=== PATIENT | male | born 1960 | race Caucasian/White ===

== ENCOUNTER 2017-02-09 17:41 | Inpatient (IN) ==
[2017-02-09] MEDS ORDERED: METOCLOPRAMIDE 10 MG/2 ML VIAL IV STA (19:36)
[2017-02-09] MEDS ORDERED: SODIUM CHLORIDE 0.9% 1,000 ML IV STA (19:36)
[2017-02-09] MEDS ORDERED: ONDANSETRON 4 MG/2 ML VIAL IV STA (19:36)
[2017-02-09 20:09] LABS: Basophils % 0.2 % (0.0-0.8); Hematocrit 39.8 VOL% (42.0-52.0); Hemoglobin 13.6 GM/DL (14.0-18.0); Immature Granulocytes % 0.6 %; Immature Granulocytes Absolute 0.12 #; Lymphocytes # 1.4 10*3/uL (1.4-4.0); Lymphocytes % 6.6 % (21.2-54.2); Mean Corpuscular HGB Conc 34.2 GM/DL (32-36); Mean Corpuscular Hemoglobin 29 PG (27-34); Mean Corpuscular Volume 85.6 FL (87-102); Mean Platelet Volume 11.1 FL (9.6-12.0); Monocytes # 2.1 10*3/uL (0.11-0.8); Monocytes % 9.9 % (1.7-12.7); Neutrophils # 17.5 10*3/uL (1.4-7.4); Neutrophils % 82.7 % (38.7-73.9); Platelet Count 254 T/CUMM (130-400); Red Blood Count 4.65 MC/CUMM (3.8-5.5); Red Cell Distribution Width 13.2 % (9.3-17.3); White Blood Count 21.1 T/CUMM (4-12)
[2017-02-09 20:11] LABS: Apearance,Urine Slightly Hazy (Clear); Bilirubin,Urine Negative (Negative); Blood, Urine Negative (Negative); Glucose,Urine (UA) Negative (Negative); Ketones,Urine 5 mg/dL (Negative); Mucus,Urine Few /LPF (Occasional); Nitrite,Urine Negative (Negative); Protein,Urine Negative; RBC,Urine <1 /HPF (0-4); Squamous Epithelial Cell,Urine Occasional /HPF (0-10); Urine Color Yellow (Yellow); Urine Specific Gravity 1.029 (1.001-1.035); Urine Urobilinogen < 2.0 EU/DL (0.2-1.0); WBC,Urine 2 /HPF (0-6)
[2017-02-09] MEDS ORDERED: cefTRIAXone 1,000 MG in SODIUM CHLORIDE 0.9% 100 ML IV STA (20:17)
[2017-02-09] MEDS ORDERED: metroNIDAZOLE INJ 500 MG in PREMIX 1 EACH IV STA (20:17)
[2017-02-09] MEDS ORDERED: cefTRIAXone 1,000 MG VIAL ONE (20:30)
[2017-02-09] MEDS ORDERED: SODIUM CHLORIDE 0.9% 50 ML IV ONE (20:30)
[2017-02-09] MEDS ORDERED: METOCLOPRAMIDE 10 MG/2 ML VIAL ONE (20:32)
[2017-02-09] MEDS ORDERED: ONDANSETRON 4 MG/2 ML VIAL ONE (20:32)
[2017-02-09 20:36] LABS: Albumin 4.2 G/DL (3.4-5.0); Bilirubin,Total 0.5 MG/DL (0.2-1.0); Calcium 9.1 MG/DL (8.5-10.1); Osmolality,Calculated 272.2 MOS/KG (273-304); Potassium 3.6 MMOL/L (3.5-5.1); Total Protein 7.1 G/DL (6.4-8.3)
[2017-02-09 21:02] LABS: INR 1.1; PT Patient Result 11.1 SECS; Partial Thromboplastin Time 26.2 SECS (0-40)
[2017-02-09] MEDS ORDERED: metroNIDAZOLE 500 MG/100 ML PREMIX IV ONE (21:10)
[2017-02-09 21:41] LABS: Lymphocytes 4 % (20-55); Platelet Estimate Normal; Segmented Neutrophils 90 % (50-85); Total Cells Counted 100
[2017-02-09] MEDS ORDERED: GLUCAGON 1 MG VIAL IM PRN (23:55)
[2017-02-09] MEDS ORDERED: ACETAMINOPHEN 325 MG TABLET PO PRN (23:55)
[2017-02-09] MEDS ORDERED: ONDANSETRON 4 MG/2 ML VIAL IV PRN (23:55)
[2017-02-09] MEDS ORDERED: DEXTROSE 50% 25 GM/50 ML VIAL IV PRN (23:55)
[2017-02-09] MEDS ORDERED: HYDROmorphone 2 MG/1 ML VIAL IV PRN (23:55)
[2017-02-10] MEDS: PIPERACILLIN/TAZOBACTAM 3,375 MG in SODIUM CHLORIDE 0.9% 100 ML IV SCH ×3 (00:32→16:55)
[2017-02-10] MEDS: SODIUM CHLORIDE 0.9% 1,000 ML IV SCH ×3 (00:32→16:55)
[2017-02-10 06:16] LABS: Basophils % 0.2 % (0.0-0.8); Hematocrit 38.3 VOL% (42.0-52.0); Hemoglobin 13.1 GM/DL (14.0-18.0); Immature Granulocytes % 0.5 %; Immature Granulocytes Absolute 0.09 #; Lymphocytes # 2.2 10*3/uL (1.4-4.0); Lymphocytes % 12.1 % (21.2-54.2); Mean Corpuscular HGB Conc 34.2 GM/DL (32-36); Mean Corpuscular Hemoglobin 30 PG (27-34); Mean Corpuscular Volume 86.7 FL (87-102); Mean Platelet Volume 11.4 FL (9.6-12.0); Monocytes % 11.5 % (1.7-12.7); Neutrophils # 13.4 10*3/uL (1.4-7.4); Neutrophils % 75.7 % (38.7-73.9); Platelet Count 221 T/CUMM (130-400); Red Blood Count 4.42 MC/CUMM (3.8-5.5); Red Cell Distribution Width 13.3 % (9.3-17.3); White Blood Count 17.7 T/CUMM (4-12)
[2017-02-10] MEDS ORDERED: ceFAZolin 2,000 MG in PREMIX 1 EACH IV ONE (06:37)
[2017-02-10 06:45] LABS: Albumin 3.9 G/DL (3.4-5.0); Bilirubin,Total 0.9 MG/DL (0.2-1.0); Calcium 8.6 MG/DL (8.5-10.1); Magnesium 1.8 MG/DL (1.8-2.4); Potassium 3.4 MMOL/L (3.5-5.1); Total Protein 6.4 G/DL (6.4-8.3)
[2017-02-10] MEDS ORDERED: BUPIVACAINE 0.5% /EPI 10 ML VIAL ONE (07:00)
[2017-02-10] MEDS ORDERED: TISSUE ADHESIVE 1 EACH APPLICATOR TOP ONE (07:00)
[2017-02-10] MEDS ORDERED: ceFAZolin 1,000 MG VIAL ONE (07:31)
[2017-02-10] MEDS: INSULIN REGULAR 100 UNIT/ML SUBCUT SCH ×4 (08:48→21:35)
[2017-02-10] MEDS: PANTOPRAZOLE 40 MG VIAL IV SCH (08:49)
[2017-02-10] MEDS ORDERED: PROPOFOL 200 MG/20 ML VIAL IV ONE (09:20)
[2017-02-10] MEDS ORDERED: MIDAZOLAM 2 MG/2 ML VIAL ONE (09:21)
[2017-02-10] MEDS ORDERED: KETOROLAC 30 MG/1 ML VIAL ONE (09:21)
[2017-02-10] MEDS ORDERED: ONDANSETRON 4 MG/2 ML VIAL ONE (09:21)
[2017-02-10] MEDS ORDERED: fentaNYL 100 MCG/2 ML VIAL ONE (09:21)
[2017-02-10] MEDS ORDERED: SEVOFLURANE 1 UNIT/15 MINUTE INH ONE (09:21)
[2017-02-10] MEDS ORDERED: ROCURONIUM 100 MG/10 ML VIAL IV ONE (09:22)
[2017-02-10] MEDS ORDERED: GLYCOPYRROLATE 0.4 MG/2 ML VIAL ONE (09:22)
[2017-02-10] MEDS ORDERED: NEOSTIGMINE 10 MG/10 ML VIAL ONE (09:22)
[2017-02-10] MEDS ORDERED: LACTATED RINGERS 1,000 ML IV ONE (12:27)
[2017-02-10] MEDS: ENOXAPARIN 40 MG/0.4 ML SYRINGE SUBCUT SCH (17:15)
[2017-02-10] MEDS: POTASSIUM CITRATE 10 MEQ TABLET PO SCH (17:17)
[2017-02-10] MEDS ORDERED: Flaxseed Oil [Flaxseed Oil] 1,000 MG PO SCH (21:00)
[2017-02-10] MEDS: ASPIRIN EC 81 MG TABLET PO SCH (22:34)
[2017-02-10] MEDS: OMEGA 3 ACID ETHYL ESTERS 1 GM CAPSULE PO SCH (22:34)
[2017-02-10] MEDS: FENOFIBRATE 145 MG TABLET PO SCH (22:35)
[2017-02-10] MEDS: MAGNESIUM OXIDE 400 MG TABLET PO SCH (22:35)
[2017-02-10] MEDS: ALLOPURINOL 300 MG TABLET PO SCH (22:35)
[2017-02-10] MEDS: SIMVASTATIN 20 MG TABLET PO SCH (22:35)
[2017-02-11] MEDS: PIPERACILLIN/TAZOBACTAM 3,375 MG in SODIUM CHLORIDE 0.9% 100 ML IV SCH ×4 (00:16→23:50)
[2017-02-11] MEDS: SODIUM CHLORIDE 0.9% 1,000 ML IV SCH ×3 (00:18→17:20)
[2017-02-11] MEDS: LEVOTHYROXINE 125 MCG TABLET PO SCH (06:37)
[2017-02-11 06:48] LABS: Basophils % 0.2 % (0.0-0.8); Eosinophils % 0.2 % (0.00-10.9); Hematocrit 33.3 VOL% (42.0-52.0); Hemoglobin 11.1 GM/DL (14.0-18.0); Immature Granulocytes % 0.3 %; Immature Granulocytes Absolute 0.04 #; Lymphocytes # 1.9 10*3/uL (1.4-4.0); Lymphocytes % 14.9 % (21.2-54.2); Mean Corpuscular HGB Conc 33.3 GM/DL (32-36); Mean Corpuscular Hemoglobin 29 PG (27-34); Mean Corpuscular Volume 88.3 FL (87-102); Mean Platelet Volume 11.7 FL (9.6-12.0); Monocytes # 1.3 10*3/uL (0.11-0.8); Monocytes % 10.5 % (1.7-12.7); Neutrophils # 9.2 10*3/uL (1.4-7.4); Neutrophils % 73.9 % (38.7-73.9); Platelet Count 183 T/CUMM (130-400); Red Blood Count 3.77 MC/CUMM (3.8-5.5); Red Cell Distribution Width 13.2 % (9.3-17.3); White Blood Count 12.4 T/CUMM (4-12)
[2017-02-11 07:20] LABS: Calcium 7.9 MG/DL (8.5-10.1); Magnesium 1.9 MG/DL (1.8-2.4); Osmolality,Calculated 274.8 MOS/KG (273-304); Potassium 3.5 MMOL/L (3.5-5.1)
[2017-02-11] MEDS: INSULIN REGULAR 100 UNIT/ML SUBCUT SCH ×4 (07:28→20:40)
[2017-02-11] MEDS: PANTOPRAZOLE 40 MG VIAL IV SCH (08:46)
[2017-02-11] MEDS: MAGNESIUM OXIDE 400 MG TABLET PO SCH ×2 (08:46→20:41)
[2017-02-11] MEDS: IRBESARTAN 150 MG TABLET PO SCH (08:46)
[2017-02-11] MEDS: ASPIRIN EC 81 MG TABLET PO SCH ×2 (08:46→20:41)
[2017-02-11] MEDS: OMEGA 3 ACID ETHYL ESTERS 1 GM CAPSULE PO SCH ×2 (08:46→20:41)
[2017-02-11] MEDS: POTASSIUM CITRATE 10 MEQ TABLET PO SCH ×2 (08:47→17:20)
[2017-02-11] MEDS: CHOLECALCIFEROL 1,000 UNIT TABLET PO SCH (08:47)
[2017-02-11] MEDS ORDERED: SODIUM CHLORIDE 0.45% 1,000 ML IV SCH (12:00)
[2017-02-11] MEDS: METOPROLOL TARTRATE 25 MG TABLET PO SCH ×2 (12:33→20:24)
[2017-02-11] MEDS: ENOXAPARIN 40 MG/0.4 ML SYRINGE SUBCUT SCH (17:20)
[2017-02-11] MEDS: FENOFIBRATE 145 MG TABLET PO SCH (20:42)
[2017-02-11] MEDS: ALLOPURINOL 300 MG TABLET PO SCH (20:42)
[2017-02-11] MEDS: SIMVASTATIN 20 MG TABLET PO SCH (20:42)
[2017-02-11] MEDS ORDERED: METOPROLOL TARTRATE 25 MG TABLET PO SCH (21:00)
[2017-02-12] MEDS: SODIUM CHLORIDE 0.9% 1,000 ML IV SCH ×4 (04:02→19:20)
[2017-02-12] MEDS: LEVOTHYROXINE 125 MCG TABLET PO SCH (06:42)
[2017-02-12] MEDS: INSULIN REGULAR 100 UNIT/ML SUBCUT SCH ×4 (07:36→20:46)
[2017-02-12] MEDS: PIPERACILLIN/TAZOBACTAM 3,375 MG in SODIUM CHLORIDE 0.9% 100 ML IV SCH ×2 (08:10→16:44)
[2017-02-12] MEDS: OMEGA 3 ACID ETHYL ESTERS 1 GM CAPSULE PO SCH ×2 (10:19→21:44)
[2017-02-12] MEDS: ASPIRIN EC 81 MG TABLET PO SCH ×2 (10:19→21:45)
[2017-02-12] MEDS: IRBESARTAN 150 MG TABLET PO SCH (10:19)
[2017-02-12] MEDS: MAGNESIUM OXIDE 400 MG TABLET PO SCH ×2 (10:25→21:44)
[2017-02-12] MEDS: CHOLECALCIFEROL 1,000 UNIT TABLET PO SCH (10:26)
[2017-02-12] MEDS: POTASSIUM CITRATE 10 MEQ TABLET PO SCH ×2 (10:26→17:03)
[2017-02-12] MEDS: PANTOPRAZOLE 40 MG VIAL IV SCH (10:26)
[2017-02-12] MEDS: METOPROLOL TARTRATE 25 MG TABLET PO SCH ×2 (12:10→21:40)
[2017-02-12] MEDS: metFORMIN 500 MG TABLET PO SCH (17:36)
[2017-02-12] MEDS: ENOXAPARIN 40 MG/0.4 ML SYRINGE SUBCUT SCH (18:44)
[2017-02-12] MEDS ORDERED: NON-FORMULARY MEDICATION (Liraglutide [Victoza 2-Pak] 1.8 MG) SUBCUT SCH (21:00)
[2017-02-12] MEDS: FENOFIBRATE 145 MG TABLET PO SCH (21:44)
[2017-02-12] MEDS: SIMVASTATIN 20 MG TABLET PO SCH (21:44)
[2017-02-12] MEDS: ALLOPURINOL 300 MG TABLET PO SCH (21:45)
[2017-02-13] MEDS: PIPERACILLIN/TAZOBACTAM 3,375 MG in SODIUM CHLORIDE 0.9% 100 ML IV SCH ×2 (00:02→07:13)
[2017-02-13 05:06] LABS: Basophils % 0.5 % (0.0-0.8); Eosinophils # 0.2 10*3/uL (0.0-0.87); Eosinophils % 2.5 % (0.00-10.9); Hematocrit 34.5 VOL% (42.0-52.0); Hemoglobin 11.9 GM/DL (14.0-18.0); Immature Granulocytes % 0.2 %; Immature Granulocytes Absolute 0.02 #; Mean Corpuscular HGB Conc 34.5 GM/DL (32-36); Mean Corpuscular Hemoglobin 30 PG (27-34); Mean Corpuscular Volume 85.8 FL (87-102); Mean Platelet Volume 11.5 FL (9.6-12.0); Monocytes # 0.8 10*3/uL (0.11-0.8); Monocytes % 9.1 % (1.7-12.7); Neutrophils # 5.6 10*3/uL (1.4-7.4); Neutrophils % 64.7 % (38.7-73.9); Platelet Count 255 T/CUMM (130-400); Red Blood Count 4.02 MC/CUMM (3.8-5.5); Red Cell Distribution Width 12.9 % (9.3-17.3); White Blood Count 8.7 T/CUMM (4-12)
[2017-02-13 05:48] LABS: Calcium 8.5 MG/DL (8.5-10.1); Magnesium 1.7 MG/DL (1.8-2.4)
[2017-02-13 05:49] LABS: Osmolality,Calculated 278.4 MOS/KG (273-304); Potassium 3.8 MMOL/L (3.5-5.1)
[2017-02-13] MEDS: LEVOTHYROXINE 125 MCG TABLET PO SCH (06:19)
[2017-02-13] MEDS: INSULIN REGULAR 100 UNIT/ML SUBCUT SCH ×2 (07:43→11:11)
[2017-02-13] MEDS: IRBESARTAN 150 MG TABLET PO SCH (08:53)
[2017-02-13] MEDS: metFORMIN 500 MG TABLET PO SCH (08:53)
[2017-02-13] MEDS: OMEGA 3 ACID ETHYL ESTERS 1 GM CAPSULE PO SCH (08:53)
[2017-02-13] MEDS: ASPIRIN EC 81 MG TABLET PO SCH (08:53)
[2017-02-13] MEDS: MAGNESIUM OXIDE 400 MG TABLET PO SCH (08:53)
[2017-02-13] MEDS: PANTOPRAZOLE 40 MG VIAL IV SCH (08:53)
[2017-02-13] MEDS: CHOLECALCIFEROL 1,000 UNIT TABLET PO SCH (08:54)
[2017-02-13] MEDS: POTASSIUM CITRATE 10 MEQ TABLET PO SCH (08:54)
[2017-02-13] MEDS: METOPROLOL TARTRATE 25 MG TABLET PO SCH (08:58)
[2017-02-13] MEDS ORDERED: hydroCHLOROthiazide 25 MG TABLET PO SCH (09:00)
[2017-02-13 11:28] VITALS: BP 121/63
[2017-02-13] MEDS ORDERED: ASCORBIC ACID 500 MG TABLET PO SCH (21:00)
== END 2017-02-13 11:45 | disposition home or self-care (01) | DRG 339 ==
LOC: N.ED 17:41 → N.EDINP 23:06 → N.3E 23:29
PROVIDERS: ADMIT Surgery; ATTEND Surgery

== ENCOUNTER 2017-05-27 09:32 | Inpatient (IN) ==
[2017-05-27] MEDS ORDERED: DILTIAZEM 50 MG/10 ML VIAL IV STA ×2 (10:07→12:25)
[2017-05-27] MEDS ORDERED: DILTIAZEM 100 MG VIAL.ADD IV ONE ×2 (10:15→12:27)
[2017-05-27] MEDS ORDERED: METOPROLOL TARTRATE 5 MG/5 ML VIAL IV STA (10:25)
[2017-05-27] MEDS ORDERED: METOPROLOL TARTRATE 5 MG/5 ML VIAL IV ONE (10:27)
[2017-05-27 10:35] LABS: Basophils # 0.1 10*3/uL (0.0-0.2); Basophils % 0.5 % (0.0-0.8); Eosinophils # 0.3 10*3/uL (0.0-0.87); Eosinophils % 2.2 % (0.00-10.9); Hematocrit 43.4 VOL% (42.0-52.0); Hemoglobin 14.6 GM/DL (14.0-18.0); Immature Granulocytes % 0.2 %; Immature Granulocytes Absolute 0.03 #; Lymphocytes # 1.9 10*3/uL (1.4-4.0); Lymphocytes % 15.4 % (21.2-54.2); Mean Corpuscular HGB Conc 33.6 GM/DL (32-36); Mean Corpuscular Hemoglobin 29 PG (27-34); Mean Corpuscular Volume 87.1 FL (87-102); Mean Platelet Volume 11.6 FL (9.6-12.0); Monocytes # 1.5 10*3/uL (0.11-0.8); Monocytes % 11.5 % (1.7-12.7); Neutrophils # 8.8 10*3/uL (1.4-7.4); Neutrophils % 70.2 % (38.7-73.9); Platelet Count 244 T/CUMM (130-400); Red Blood Count 4.98 MC/CUMM (3.8-5.5); Red Cell Distribution Width 13.2 % (9.3-17.3); White Blood Count 12.6 T/CUMM (4-12)
[2017-05-27 10:54] LABS: PT Patient Result 10.2 SECS
[2017-05-27 11:01] LABS: Free T4 (Free Thyroxine) 1.61 NG/DL (0.76-1.46); Troponin I Only < 0.015 NG/ML (0.00-0.045)
[2017-05-27 11:03] LABS: Albumin 3.9 G/DL (3.4-5.0); Bilirubin,Total 0.4 MG/DL (0.2-1.0); Calcium 10.1 MG/DL (8.5-10.1); Osmolality,Calculated 284.7 MOS/KG (273-304); Potassium 4.5 MMOL/L (3.5-5.1); Thyroid Stimulating Hormone 1.85 uIU/ml (0.358-3.74); Total Protein 6.9 G/DL (6.4-8.3)
[2017-05-27] MEDS ORDERED: AZITHROMYCIN INJ 500 MG in SODIUM CHLORIDE 0.9% 250 ML IV STA (11:22)
[2017-05-27] MEDS ORDERED: ALBUTEROL/IPRATROPIUM 3 ML NEB RESP TX STA (11:22)
[2017-05-27] MEDS ORDERED: methylPREDNISolone SOD SUC 125 MG/2 ML VIAL IV STA (11:22)
[2017-05-27] MEDS ORDERED: AZITHROMYCIN 500 MG VIAL IV ONE (11:38)
[2017-05-27] MEDS ORDERED: methylPREDNISolone SOD SUC 125 MG/2 ML VIAL ONE (11:38)
[2017-05-27] MEDS: DILTIAZEM INJ 100 MG in SODIUM CHLORIDE 0.9% 100 ML IV SCH (12:28)
[2017-05-27] MEDS ORDERED: ACETAMINOPHEN 325 MG TABLET PO PRN (14:01)
[2017-05-27] MEDS ORDERED: DEXTROSE 50% 25 GM/50 ML VIAL IV PRN ×2 (14:01)
[2017-05-27] MEDS ORDERED: GLUCAGON 1 MG VIAL IM PRN ×2 (14:01)
[2017-05-27] MEDS: APIXABAN 5 MG TABLET PO SCH ×2 (14:37→21:07)
[2017-05-27] MEDS: DOXYCYCLINE HYCLATE 100 MG CAPSULE PO SCH (14:37)
[2017-05-27] MEDS: cefTRIAXone 1,000 MG in SYRINGE 1 EACH IV SCH (14:37)
[2017-05-27 14:38] LABS: Risk Ratio 5.36; VLDL CHOLESTEROL 41.2 MG/DL
[2017-05-27 14:53] LABS: Troponin I Only < 0.015 NG/ML (0.00-0.045)
[2017-05-27] MEDS ORDERED: SOTALOL 80 MG TABLET PO ONE (15:35)
[2017-05-27] MEDS: INSULIN REGULAR 100 UNIT/ML SUBCUT SCH (17:11)
[2017-05-27 18:41] LABS: Apearance,Urine CLEAR (Clear); Bilirubin,Urine Negative (Negative); Blood, Urine Negative (Negative); Glucose,Urine (UA) 50 mg/dL (Negative); Ketones,Urine 20 mg/dL (Negative); Mucus,Urine Occasional /LPF (Occasional); Nitrite,Urine Negative (Negative); Protein,Urine Negative; RBC,Urine 1 /HPF (0-4); Urine Color Yellow (Yellow); Urine Specific Gravity 1.027 (1.001-1.035); Urine Urobilinogen < 2.0 EU/DL (0.2-1.0); WBC,Urine <1 /HPF (0-6)
[2017-05-27] MEDS ORDERED: FLAXSEED OIL 1000 MG PO SCH (21:00)
[2017-05-27] MEDS ORDERED: NF- (Liraglutide [Victoza 2-Pak] 1.8 MG) SUBCUT SCH (21:00)
[2017-05-27] MEDS: ASPIRIN EC 81 MG TABLET PO SCH (21:02)
[2017-05-27] MEDS: ALLOPURINOL 300 MG TABLET PO SCH (21:02)
[2017-05-27] MEDS: ASCORBIC ACID 500 MG TABLET PO SCH (21:02)
[2017-05-27] MEDS: MAGNESIUM OXIDE 400 MG TABLET PO SCH (21:02)
[2017-05-27] MEDS: SOTALOL 80 MG TABLET PO SCH (21:02)
[2017-05-27] MEDS: SIMVASTATIN 20 MG TABLET PO SCH (21:02)
[2017-05-28] MEDS: INSULIN REGULAR 100 UNIT/ML SUBCUT SCH ×4 (00:49→18:05)
[2017-05-28] MEDS: DILTIAZEM INJ 100 MG in SODIUM CHLORIDE 0.9% 100 ML IV SCH ×2 (03:50→13:23)
[2017-05-28] MEDS ORDERED: SODIUM CHLORIDE 0.9% 500 ML IV ONE (03:56)
[2017-05-28 05:14] LABS: Basophils % 0.1 % (0.0-0.8); Hematocrit 36.7 VOL% (42.0-52.0); Hemoglobin 12.6 GM/DL (14.0-18.0); Immature Granulocytes % 0.4 %; Immature Granulocytes Absolute 0.05 #; Lymphocytes # 1.1 10*3/uL (1.4-4.0); Lymphocytes % 8.4 % (21.2-54.2); Mean Corpuscular HGB Conc 34.3 GM/DL (32-36); Mean Corpuscular Hemoglobin 30 PG (27-34); Mean Corpuscular Volume 86.4 FL (87-102); Mean Platelet Volume 12.1 FL (9.6-12.0); Monocytes # 0.7 10*3/uL (0.11-0.8); Monocytes % 5.6 % (1.7-12.7); Neutrophils # 11.1 10*3/uL (1.4-7.4); Neutrophils % 85.5 % (38.7-73.9); Platelet Count 237 T/CUMM (130-400); Red Blood Count 4.25 MC/CUMM (3.8-5.5); Red Cell Distribution Width 13.2 % (9.3-17.3); White Blood Count 12.9 T/CUMM (4-12)
[2017-05-28 06:04] LABS: Alanine Aminotransferase 19 U/L (16-61); Albumin 3.3 G/DL (3.4-5.0); Alkaline Phosphatase 49 U/L (45-117); Aspartate Amino Transferase 9 U/L (0-37); Blood Urea Nitrogen 32 MG/DL (7-18); Glucose 310 MG/DL (74-106); Osmolality,Calculated 291.8 MOS/KG (273-304); Sodium 137 MMOL/L (136-145); Total Protein 6.1 G/DL (6.4-8.3); Troponin I Only < 0.015 NG/ML (0.00-0.045)
[2017-05-28] MEDS: LEVOTHYROXINE 125 MCG TABLET PO SCH (06:20)
[2017-05-28] MEDS ORDERED: NF- (Cyanocobalamin (Vitamin B-12) [Vitamin B-12] 5,000 MCG) SL SCH (09:00)
[2017-05-28] MEDS: PANTOPRAZOLE 40 MG TABLET PO SCH (09:48)
[2017-05-28] MEDS: MAGNESIUM OXIDE 400 MG TABLET PO SCH ×2 (09:48→20:46)
[2017-05-28] MEDS: SOTALOL 80 MG TABLET PO SCH ×2 (09:49→20:46)
[2017-05-28] MEDS: ASCORBIC ACID 500 MG TABLET PO SCH ×2 (09:55→20:46)
[2017-05-28] MEDS: CHOLECALCIFEROL 5,000 UNIT TABLET PO SCH (09:55)
[2017-05-28] MEDS: APIXABAN 5 MG TABLET PO SCH ×2 (09:55→20:46)
[2017-05-28] MEDS: DOXYCYCLINE HYCLATE 100 MG CAPSULE PO SCH (09:55)
[2017-05-28] MEDS: ASPIRIN EC 81 MG TABLET PO SCH ×2 (09:56→20:46)
[2017-05-28] MEDS: GLIMEPIRIDE 4 MG TABLET PO SCH (09:56)
[2017-05-28] MEDS: cefTRIAXone 1,000 MG in SYRINGE 1 EACH IV SCH (14:30)
[2017-05-28] MEDS: SIMVASTATIN 20 MG TABLET PO SCH (20:46)
[2017-05-28] MEDS: ALLOPURINOL 300 MG TABLET PO SCH (20:46)
[2017-05-29] MEDS: INSULIN REGULAR 100 UNIT/ML SUBCUT SCH ×2 (00:12→05:00)
[2017-05-29] MEDS: LEVOTHYROXINE 125 MCG TABLET PO SCH ×2 (06:15→10:15)
[2017-05-29] MEDS ORDERED: MIDAZOLAM 10 MG/2 ML VIAL ONE (07:47)
[2017-05-29] MEDS ORDERED: fentaNYL 100 MCG/2 ML VIAL ONE (07:47)
[2017-05-29] MEDS ORDERED: MIDAZOLAM 2 MG/2 ML VIAL IV ONE (08:00)
[2017-05-29] MEDS ORDERED: fentaNYL 100 MCG/2 ML VIAL IV ONE (08:00)
[2017-05-29] MEDS ORDERED: SODIUM CHLORIDE 0.9% 1,000 ML IV SCH (08:30)
[2017-05-29] MEDS: PANTOPRAZOLE 40 MG TABLET PO SCH (09:41)
[2017-05-29] MEDS: APIXABAN 5 MG TABLET PO SCH (09:41)
[2017-05-29] MEDS: ASPIRIN EC 81 MG TABLET PO SCH (09:41)
[2017-05-29] MEDS: MAGNESIUM OXIDE 400 MG TABLET PO SCH (09:41)
[2017-05-29] MEDS: SOTALOL 80 MG TABLET PO SCH (09:41)
[2017-05-29] MEDS: CHOLECALCIFEROL 5,000 UNIT TABLET PO SCH (09:42)
[2017-05-29] MEDS: DOXYCYCLINE HYCLATE 100 MG CAPSULE PO SCH (09:42)
[2017-05-29] MEDS: ASCORBIC ACID 500 MG TABLET PO SCH (09:42)
[2017-05-29] MEDS: GLIMEPIRIDE 4 MG TABLET PO SCH (09:46)
[2017-05-29 11:56] VITALS: BP 109/64
== END 2017-05-29 12:00 | disposition home or self-care (01) | DRG 308 ==
LOC: N.ED 09:32 → SUATTDRO 12:25 → N.EDINP 12:25 → N.TELES 13:31
PROVIDERS: ADMIT Family Medicine; ATTEND Internal Medicine

== ENCOUNTER 2018-02-20 05:54 | Observation (INO) ==
[2018-02-20] MEDS ORDERED: LIDOCAINE 1% 20 ML VIAL ONE ×2 (06:53→08:02)
[2018-02-20] MEDS ORDERED: HEPARIN/NACL 0.9% 2 UNITS/ML 500 ML IV ONE (06:53)
[2018-02-20 07:00] LABS: Basophils % 0.4 % (0.0-0.8); Eosinophils # 0.1 10*3/uL (0.0-0.87); Hematocrit 44.2 VOL% (42.0-52.0); Hemoglobin 14.7 GM/DL (14.0-18.0); Immature Granulocytes % 0.3 %; Immature Granulocytes Absolute 0.03 #; Lymphocytes # 2.7 10*3/uL (1.4-4.0); Mean Corpuscular HGB Conc 33.3 GM/DL (32-36); Mean Corpuscular Hemoglobin 30 PG (27-34); Mean Corpuscular Volume 88.8 FL (87-102); Monocytes # 0.7 10*3/uL (0.11-0.8); Monocytes % 7.5 % (1.7-12.7); Neutrophils # 6.3 10*3/uL (1.4-7.4); Neutrophils % 63.8 % (38.7-73.9); Platelet Count 230 T/CUMM (130-400); Red Blood Count 4.98 MC/CUMM (3.8-5.5); Red Cell Distribution Width 12.8 % (9.3-17.3); White Blood Count 9.9 T/CUMM (4-12)
[2018-02-20] MEDS ORDERED: HEPARIN/NACL 0.9% 2 UNITS/ML 1,500 ML IV ONE (07:09)
[2018-02-20] MEDS ORDERED: HEPARIN/NACL 0.9% 2 UNITS/ML 1,000 ML IV ONE ×2 (07:16→08:12)
[2018-02-20 07:19] LABS: Calcium 9.1 MG/DL (8.5-10.1); Osmolality,Calculated 285.3 MOS/KG (273-304)
[2018-02-20] MEDS ORDERED: ISOPROTERENOL 1 MG/5 ML VIAL IV ONE (09:25)
[2018-02-20] MEDS ORDERED: HEPARIN DRIP 25,000 UNITS/500 ML PREMIX IV ONE (10:04)
[2018-02-20] MEDS ORDERED: MORPHINE 4 MG/1 ML VIAL IV PRN (12:10)
[2018-02-20] MEDS ORDERED: ONDANSETRON 4 MG/2 ML VIAL IV PRN (12:10)
[2018-02-20] MEDS ORDERED: ACETAMINOPHEN 325 MG TABLET PO PRN (12:10)
[2018-02-20] MEDS ORDERED: ASPIRIN EC 325 MG TABLET PO ONE (12:10)
[2018-02-20] MEDS ORDERED: ZALEPLON 5 MG CAPSULE PO PRN (12:10)
[2018-02-20] MEDS ORDERED: PROPOFOL 200 MG/20 ML VIAL IV ONE (12:12)
[2018-02-20] MEDS ORDERED: SEVOFLURANE 1 UNIT/15 MINUTE INH ONE (12:13)
[2018-02-20] MEDS ORDERED: PHENYLEPHRINE DRIP 20 MG/250 ML PREMIX IV ONE (12:13)
[2018-02-20] MEDS ORDERED: MIDAZOLAM 2 MG/2 ML VIAL ONE (12:13)
[2018-02-20] MEDS ORDERED: fentaNYL 100 MCG/2 ML VIAL ONE (12:13)
[2018-02-20] MEDS ORDERED: NEOSTIGMINE 10 MG/10 ML VIAL ONE (12:14)
[2018-02-20] MEDS ORDERED: HEPARIN 10,000 UNIT/10 ML VIAL ONE (12:14)
[2018-02-20] MEDS ORDERED: SUCCINYLCHOLINE 200 MG/10 ML VIAL ONE (12:14)
[2018-02-20] MEDS ORDERED: GLYCOPYRROLATE 0.4 MG/2 ML VIAL ONE (12:14)
[2018-02-20] MEDS ORDERED: ROCURONIUM 100 MG/10 ML VIAL IV ONE (12:14)
[2018-02-20] MEDS ORDERED: PROTAMINE SULFATE 50 MG/5 ML VIAL IV ONE (12:15)
[2018-02-20] MEDS ORDERED: METOPROLOL SUCCINATE XL 50 MG TABLET PO SCH (12:30)
[2018-02-20] MEDS: MAGNESIUM OXIDE 400 MG TABLET PO SCH ×2 (13:44→21:18)
[2018-02-20] MEDS: PANTOPRAZOLE 40 MG TABLET PO SCH ×2 (13:44→21:18)
[2018-02-20] MEDS: metFORMIN 500 MG TABLET PO SCH (17:24)
[2018-02-20] MEDS: POTASSIUM CHLORIDE 20 MEQ TABLET PO SCH (17:24)
[2018-02-20] MEDS ORDERED: Liraglutide [Victoza 2-Pak] 1.8 MG SUBCUT SCH (21:00)
[2018-02-20] MEDS ORDERED: Flaxseed Oil [Flaxseed Oil] 1,000 MG PO SCH (21:00)
[2018-02-20] MEDS: ALLOPURINOL 300 MG TABLET PO SCH (21:17)
[2018-02-20] MEDS: METOPROLOL SUCCINATE XL 50 MG TABLET PO SCH (21:18)
[2018-02-20] MEDS: ASCORBIC ACID 500 MG TABLET PO SCH (21:18)
[2018-02-20] MEDS: APIXABAN 5 MG TABLET PO SCH (21:18)
[2018-02-20] MEDS: SIMVASTATIN 20 MG TABLET PO SCH (21:18)
[2018-02-21] MEDS ORDERED: NITROGLYCERIN SL 0.4 MG TABLET SL PRN (01:19)
[2018-02-21] MEDS ORDERED: KETOROLAC 30 MG/1 ML VIAL IV ONE (02:00)
[2018-02-21 02:03] LABS: Calcium 8.2 MG/DL (8.5-10.1); Osmolality,Calculated 282.5 MOS/KG (273-304); Potassium 3.9 MMOL/L (3.5-5.1)
[2018-02-21 02:07] LABS: CKMB % 4.6 %
[2018-02-21 02:08] LABS: Troponin I 3.67 NG/ML (0.00-0.045)
[2018-02-21 02:38] LABS: Basophils % 0.2 % (0.0-0.8); Hematocrit 40.6 VOL% (42.0-52.0); Hemoglobin 13.1 GM/DL (14.0-18.0); Immature Granulocytes % 0.4 %; Immature Granulocytes Absolute 0.06 #; Lymphocytes # 1.4 10*3/uL (1.4-4.0); Mean Corpuscular HGB Conc 32.3 GM/DL (32-36); Mean Corpuscular Hemoglobin 29 PG (27-34); Mean Corpuscular Volume 90.2 FL (87-102); Mean Platelet Volume 11.5 FL (9.6-12.0); Monocytes # 1.4 10*3/uL (0.11-0.8); Monocytes % 8.6 % (1.7-12.7); Neutrophils # 13.9 10*3/uL (1.4-7.4); Neutrophils % 82.8 % (38.7-73.9); Platelet Count 205 T/CUMM (130-400); Red Cell Distribution Width 12.9 % (9.3-17.3); White Blood Count 16.8 T/CUMM (4-12)
[2018-02-21] MEDS ORDERED: ENOXAPARIN 120 MG/0.8 ML SYRINGE SUBCUT ONE (03:00)
[2018-02-21] MEDS: NITROGLYCERIN 2% OINT 1 INCH/GM PACK TOP SCH ×4 (03:07→21:00)
[2018-02-21] MEDS ORDERED: NITROGLYCERIN 2% OINT 1 INCH/GM PACK TOP SCH (06:00)
[2018-02-21] MEDS: LEVOTHYROXINE 125 MCG TABLET PO SCH (06:30)
[2018-02-21] MEDS ORDERED: IBUPROFEN 400 MG TABLET PO PRN (07:45)
[2018-02-21] MEDS ORDERED: GLUCAGON 1 MG VIAL IM PRN (08:18)
[2018-02-21] MEDS ORDERED: DEXTROSE 50% 25 GM/50 ML SYRINGE IV PRN (08:18)
[2018-02-21] MEDS ORDERED: Cyanocobalamin (Vitamin B-12) [Vitamin B-12] 5,000 MCG SL SCH (09:00)
[2018-02-21] MEDS ORDERED: IRBESARTAN 150 MG TABLET PO SCH (09:00)
[2018-02-21] MEDS: metFORMIN 500 MG TABLET PO SCH ×2 (09:03→18:09)
[2018-02-21] MEDS: MAGNESIUM OXIDE 400 MG TABLET PO SCH ×2 (09:04→20:59)
[2018-02-21] MEDS: APIXABAN 5 MG TABLET PO SCH ×2 (09:04→20:59)
[2018-02-21] MEDS: ASPIRIN EC 81 MG TABLET PO SCH (09:04)
[2018-02-21] MEDS: POTASSIUM CHLORIDE 20 MEQ TABLET PO SCH ×2 (09:04→18:09)
[2018-02-21] MEDS: METOPROLOL SUCCINATE XL 50 MG TABLET PO SCH ×2 (09:05→21:00)
[2018-02-21] MEDS: ASCORBIC ACID 500 MG TABLET PO SCH ×2 (09:05→20:59)
[2018-02-21] MEDS: PANTOPRAZOLE 40 MG TABLET PO SCH ×2 (09:05→20:59)
[2018-02-21] MEDS: CHOLECALCIFEROL 5,000 UNIT TABLET PO SCH (09:14)
[2018-02-21 09:40] LABS: Apearance,Urine Slightly Hazy (Clear); Bilirubin,Urine Negative (Negative); Blood, Urine Negative (Negative); Glucose,Urine (UA) 50 mg/dL (Negative); Hyaline Casts,Urine 3 /LPF (0-3); Ketones,Urine 5 mg/dL (Negative); Mucus,Urine Moderate /LPF (Occasional); Nitrite,Urine Negative (Negative); Protein,Urine Negative; RBC,Urine 2 /HPF (0-4); Squamous Epithelial Cell,Urine Occasional /HPF (0-10); Urine Color Yellow (Yellow); Urine Specific Gravity 1.026 (1.001-1.035); Urine Urobilinogen < 2.0 EU/DL (0.2-1.0); WBC,Urine 3 /HPF (0-6)
[2018-02-21] MEDS: LOSARTAN 25 MG TABLET PO SCH (11:27)
[2018-02-21] MEDS: COLCHICINE 0.6 MG TABLET PO SCH ×2 (13:07→20:59)
[2018-02-21] MEDS: CEFEPIME 1,000 MG in SYRINGE 1 EACH IV SCH (13:08)
[2018-02-21] MEDS: ALLOPURINOL 300 MG TABLET PO SCH (20:59)
[2018-02-21] MEDS: SIMVASTATIN 20 MG TABLET PO SCH (20:59)
[2018-02-22] MEDS: CEFEPIME 1,000 MG in SYRINGE 1 EACH IV SCH (01:34)
[2018-02-22] MEDS: NITROGLYCERIN 2% OINT 1 INCH/GM PACK TOP SCH ×2 (02:03→09:15)
[2018-02-22 04:06] LABS: Basophils % 0.2 % (0.0-0.8); Eosinophils # 0.1 10*3/uL (0.0-0.87); Eosinophils % 0.5 % (0.00-10.9); Hematocrit 36.4 VOL% (42.0-52.0); Hemoglobin 11.9 GM/DL (14.0-18.0); Immature Granulocytes % 0.5 %; Immature Granulocytes Absolute 0.05 #; Lymphocytes # 1.9 10*3/uL (1.4-4.0); Lymphocytes % 17.2 % (21.2-54.2); Mean Corpuscular HGB Conc 32.7 GM/DL (32-36); Mean Corpuscular Hemoglobin 30 PG (27-34); Mean Corpuscular Volume 90.5 FL (87-102); Mean Platelet Volume 10.9 FL (9.6-12.0); Monocytes # 1.3 10*3/uL (0.11-0.8); Monocytes % 11.8 % (1.7-12.7); Neutrophils # 7.7 10*3/uL (1.4-7.4); Neutrophils % 69.8 % (38.7-73.9); Platelet Count 161 T/CUMM (130-400); Red Blood Count 4.02 MC/CUMM (3.8-5.5); Red Cell Distribution Width 12.8 % (9.3-17.3); White Blood Count 10.9 T/CUMM (4-12)
[2018-02-22 04:24] LABS: Calcium 8.3 MG/DL (8.5-10.1); Osmolality,Calculated 283.4 MOS/KG (273-304); Potassium 4.3 MMOL/L (3.5-5.1)
[2018-02-22] MEDS: LEVOTHYROXINE 125 MCG TABLET PO SCH (06:12)
[2018-02-22] MEDS ORDERED: GLIMEPIRIDE 4 MG TABLET PO SCH (08:00)
[2018-02-22 08:04] VITALS: BP 117/72
[2018-02-22] MEDS ORDERED: COLCHICINE 0.6 MG TABLET PO SCH (09:00)
[2018-02-22] MEDS ORDERED: METOPROLOL SUCCINATE XL 100 MG TABLET PO SCH (09:00)
[2018-02-22] MEDS ORDERED: FLECAINIDE 100 MG TABLET PO SCH (09:00)
[2018-02-22] MEDS ORDERED: LOSARTAN 25 MG TABLET PO SCH (09:00)
[2018-02-22] MEDS: ASPIRIN EC 81 MG TABLET PO SCH (09:13)
[2018-02-22] MEDS: metFORMIN 500 MG TABLET PO SCH (09:13)
[2018-02-22] MEDS: POTASSIUM CHLORIDE 20 MEQ TABLET PO SCH (09:14)
[2018-02-22] MEDS: LOSARTAN 25 MG TABLET PO SCH (09:14)
[2018-02-22] MEDS: APIXABAN 5 MG TABLET PO SCH (09:14)
[2018-02-22] MEDS: ASCORBIC ACID 500 MG TABLET PO SCH (09:15)
[2018-02-22] MEDS: MAGNESIUM OXIDE 400 MG TABLET PO SCH (09:15)
[2018-02-22] MEDS: PANTOPRAZOLE 40 MG TABLET PO SCH (09:15)
[2018-02-22] MEDS: CHOLECALCIFEROL 5,000 UNIT TABLET PO SCH (09:16)
== END 2018-02-22 11:47 | disposition home or self-care (01) ==
LOC: N.CL 05:54 → N.TELEN 13:16 → INTOOBSV 02-21 12:49 → N.TELEN 02-21 12:49
PROVIDERS: ADMIT Internal Medicine Clinical Cardiac Electrophysiology; ATTEND Internal Medicine Clinical Cardiac Electrophysiology